=== PATIENT | female | born 1980 | race Caucasian/White ===

== ENCOUNTER 2023-02-09 19:18 | Emergency (ER) | payer SELFPAY ==
[2023-02-09 19:25] VITALS: BP 150/90; PULSE 100; RESP 24; TEMP 36.8; O2SAT 98; BMI 41.1
--- NOTE | 2023-02-09 19:38 | US_ITS ---
[address] [address] Patient Name: BATSHEVA TAPIA MRN: [id number] date: 1980 Sex: F Assigned Patient Location: ER Current Patient Location: ER Accession/Order Number: [id number] Exam Date: 02/09/2023 19:45 Report Date: 02/09/2023 20:43 At the request of: DONELL WILSON Procedure: US right upper quadrant EXAM: US right upper quadrant HISTORY: Right upper quadrant pain TECHNIQUE: Ultrasound of the right upper quadrant abdomen. COMPARISON: None. FINDINGS: Liver: Simple appearing cyst is noted. Enlarged measuring 19.1 centimeters with heterogeneous echotexture. Main portal vein is patent. No intrahepatic biliary ductal dilatation. Gallbladder: No cholelithiasis, pericholecystic fluid or gallbladder wall thickening. Common bile duct: Normal in diameter, measuring 0.4cm. Right kidney: Normal in size and echogenicity measuring 11 cm. No hydronephrosis or renal calculus. Miscellaneous:Diffuse abdominal pain during the study US/US right upper quadrant IMPRESSION: No convincing evidence of acute cholecystitis. Diffuse abdominal pain was noted during the study. Hepatomegaly with heterogeneous echotexture of the liver. Electronically authenticated by: ANITHA BRASHER Date: 02/09/2023 20:43
--- NOTE | 2023-02-09 19:40 | ED_ITS ---
HPI - Abdominal Pain General Chief Complaint: Abdominal Pain Stated Complaint: PAIN ON LEFT SIDE UPPER ABDOMAN Time Seen by Provider: 02/09/23 19:25 Source: patient Mode of arrival: walk-in Limitations: no limitations History of Present Illness HPI narrative: patient is a 42-year-old female who presents to the emergency department for the evaluation of right upper quadrant pain that began today. She states pain is worse with eating. She has had similar pain in the past but today seems more severe. She has had no fevers, chills, vomiting. She has had no urinary symptoms. She has had a previous hysterectomy and appendectomy. She last ate at 2:30 PM when she had a pad [place] noodle bowl. Related Data Previous Rx's Medication Instructions Recorded hyoscyamine sulfate 0.125 mg 0.125 mg PO Q6H PRN abdominal pain 02/09/23 tablet (Levsin) #12 tabs ketorolac 10 mg tablet 10 mg PO TID PRN pain #10 tabs 02/09/23 ondansetron 4 mg disintegrating 4 mg PO Q6H PRN nausea and 02/09/23 tablet vomiting #12 tabs oxycodone-acetaminophen 5 mg-325 1 tab PO Q6H PRN pain #15 tabs 02/09/23 mg tablet (Percocet) Allergies Allergy/AdvReac Type Severity Reaction Status Date / Time acetaminophen [From Vicodin] Allergy Intermediate Verified 02/09/23 19:29 hydrocodone [From Vicodin] Allergy Intermediate Verified 02/09/23 19:29 Review of Systems ROS Constitutional Denies: fever or chills Ears, nose, mouth, and throat Denies: neck pain Respiratory Denies: shortness of breath Gastrointestinal Reports: abdominal pain; Denies: nausea or vomiting Genitourinary Denies: painful urination Musculoskeletal Denies: back pain Integumentary/Breast Denies: rash Endocrine Denies: excessive urination Hematologic/Lymphatic Denies: easy bruising Exam Narrative Exam Narrative: Gen.: Awake, alert, in no distress Head: Normocephalic, atraumatic ENT: Moist mucous membranes Respiratory: No respiratory distress, lungs clear bilaterally Cardio: Regular rate and rhythm Gastrointestinal: Abdomen is soft, significant tenderness in the right upper quadrant with guarding, no rebound. No lower abdominal tenderness Extremities: Moves extremities equally Psych: Normal mood and affect Neuro: No focal neuro deficit Skin: Warm, dry, intact Constitutional Vital Signs, click to edit/add: Last Vital Signs Temp 98.2 F 02/09/23 19:25 Pulse 100 H 02/09/23 19:25 Resp 24 02/09/23 19:25 BP 150/90 H 02/09/23 19:25 Pulse Ox 98 02/09/23 19:25 O2 Del Method Room Air 02/09/23 19:25 Course Vital Signs Vital signs: Vital Signs Temperature 98.2 F 02/09/23 19:25 Pulse Rate 100 H 02/09/23 19:25 Respiratory Rate 24 02/09/23 19:25 Blood Pressure 150/90 H 02/09/23 19:25 Pulse Oximetry 98 02/09/23 19:25 Oxygen Delivery Method Room Air 02/09/23 19:25 Temperature 98.2 F 02/09/23 19:25 Pulse Rate 100 H 02/09/23 19:25 Respiratory Rate 24 02/09/23 19:25 Blood Pressure 150/90 H 02/09/23 19:25 Pulse Oximetry 98 02/09/23 19:25 Oxygen Delivery Method Room Air 02/09/23 19:25 MDM - Abdominal Pain MDM Narrative Medical decision making narrative: IV was established, patient requested not to take narcotic pain medication she would like to drive herself home with her work cart if she is able to be discharged. She was given IV Toradol, Levsin, Pepcid, Zofran with some improvement of symptoms. Her lab studies are unremarkable and LFTs, bilirubin and lipase are also normal. Ultrasound of the right upper quadrant shows no evidence of acute cholecystitis or gallstones. Due to the patient's level of pain on arrival, she was sent for CT to rule out any other intra-abdominal pathology. 2155: CT shows no evidence of acute process. I had lengthy discussion with the patient and her significant other at bedside. I believe the patient's symptoms represent biliary colic/biliary dyskinesia. She will require more testing with her PCP/general surgery service. She was provided multiple phone numbers for tertiary care facility general surgery services as well as local general surgeons that she can follow up with for possible HIDA scan and further testing. She is in agreement with treatment plan. She is discharged home with prescriptions for pain medication, Bentyl, Zofran, Toradol. Return to the emergency department if symptoms change or worsen. Her pain is improved at discharge. Medical Records Attestation: I reviewed the patient's medical records. Lab Data Attestation: I reviewed the patient's lab results. Labs: Lab Results 02/09/23 02/09/23 Range/Units 19:33 20:55 WBC 9.4 (4.0-11.0) 10^3/uL RBC 4.19 L (4.20-5.40) 10^6/uL Hgb 12.4 (12.0-16.0) g/dL Hct 36.4 (36.0-48.0) % MCV 86.9 (81.0-99.0) fL MCH 29.6 (26.7-34.0) pg MCHC 34.1 (29.9-35.2) g/dL RDW 12.8 (11.0-15.0) % Plt Count 303 (150-450) 10^3/uL MPV 10.5 (9.5-13.5) fL Neut % (Auto) 63.4 (43.0-75.0) % Lymph % (Auto) 27.1 (20.5-60.0) % [place] % (Auto) 7.4 (1.7-12.0) % Eos % (Auto) 1.3 (0.9-7.0) % Baso % (Auto) 0.4 (0.2-2.0) % Neut # (Auto) 6.0 (1.4-6.5) 10^3/uL Lymph # (Auto) 2.5 (1.2-3.8) 10^3/uL [place] # (Auto) 0.7 (0.3-0.8) 10^3/uL Eos # (Auto) 0.1 (0.0-0.7) 10^3/uL Baso # (Auto) 0.0 (0.0-0.1) 10^3/uL Abs Immat Gran (auto) 0.04 H (0.00-0.03) 10^3/uL Imm/Tot Granulo (auto) 0.4 (0.0-0.5) % Sodium 136 (136-145) mmol/L Potassium 3.5 (3.5-5.1) mmol/L Chloride 103 (98-107) mmol/L Carbon Dioxide 23.9 (21.0-32.0) mmol/L Anion Gap 12.6 BUN 15.0 (7.0-18.0) mg/dL Creatinine 0.92 (0.55-1.02) mg/dL Est GFR ( Amer) >60 (>=60) Est GFR (Non-Af Amer) >60 (>=60) BUN/Creatinine Ratio 16.3 Glucose 116 H (74-106) mg/dL Lactate 0.8 (0.4-2.0) mmol/L Calcium 8.3 L (8.5-10.1) mg/dL Total Bilirubin 0.3 (0.2-1.0) mg/dL AST <5 L (15-37) U/L ALT 15 (14-59) U/L Alkaline Phosphatase 66 (46-116) U/L Total Protein 7.7 (6.4-8.2) g/dL Albumin 3.7 (3.4-5.0) g/dL Globulin 4.0 g/dL Albumin/Globulin Ratio 0.9 Lipase 64.0 L (73.0-393.0) U/L Urine Color Yellow (YELLOW) Urine Clarity Clear (CLEAR) Urine pH 5.5 (5.0-9.0) Ur Specific [place] >=1.030 A (1.005-1.025) Urine Protein Negative (NEG/TRACE) mg/dL Urine Glucose (UA) Negative (NEGATIVE) mg/dL Urine Ketones Negative (NEGATIVE) mg/dL Urine Occult Blood Trace-i (NEGATIVE) Urine Nitrite Negative (NEGATIVE) Urine Bilirubin Negative (NEGATIVE) Urine Urobilinogen 0.2 (0.2-1.0) EU/dL Ur Leukocyte Esterase Negative (NEGATIVE) Urine RBC 2-5 A (0-2) #/HPF Urine WBC None seen (NONE SEEN) #/HPF Ur Squamous Epith Cells Few A (NONE/RARE) #/LPF Urine Crystals None seen (None Seen) #/HPF Urine Bacteria None seen (NONE SEEN) #/HPF Urine Casts None seen (NONE SEEN) #/LPF Urine Mucus Trace A (NONE SEEN) Ur Culture Indicated? No Imaging Data US - abdomen: Attestation: I have reviewed the pertinent imaging results. Radiologist's impression: Procedure: US right upper quadrant EXAM: US right upper quadrant HISTORY: Right upper quadrant pain TECHNIQUE: Ultrasound of the right upper quadrant abdomen. COMPARISON: None. FINDINGS: Liver: Simple appearing cyst is noted. Enlarged measuring 19.1 centimeters with heterogeneous echotexture. Main portal vein is patent. No intrahepatic biliary ductal dilatation. Gallbladder: No cholelithiasis, pericholecystic fluid or gallbladder wall thickening. Common bile duct: Normal in diameter, measuring 0.4cm. Right kidney: Normal in size and echogenicity measuring 11 cm. No hydronephrosis or renal calculus. Miscellaneous:Diffuse abdominal pain during the study IMPRESSION: No convincing evidence of acute cholecystitis. Diffuse abdominal pain was noted during the study. Hepatomegaly with heterogeneous echotexture of the liver. Electronically authenticated by: ANITHA BRASHER Date: 02/09/2023 20:43 CT scan - abdomen: Attestation: I have reviewed the pertinent imaging results. Radiologist's impression: Procedure: CT abdomen pelvis w con EXAM: CT abdomen pelvis w con REASON FOR EXAM: Female, 42 years, Abdominal pain. TECHNIQUE: Computed tomography of the abdomen and pelvis is performed in the axial projection from the lung bases to the pubic symphysis. Sagittal and coronal reconstructed images are performed. Dose reduction techniques were achieved by using automated exposure control and/or adjustment of mA and/or KVP according to patient size and/or use of iterative reconstruction technique. A total of 100 mL Omnipaque 300 IV contrast was given. Study was performed without oral contrast. COMPARISON: Right upper quadrant ultrasound, same date FINDINGS: Lung bases: The lung bases are clear. There is no pleural effusion. The visualized portions of the heart are unremarkable. Liver: There is a 1.8 cm cyst in the left lobe of the liver. A tiny cyst is noted near the refugio hepatis. Gallbladder: The gallbladder is contracted. Spleen: The spleen is normal. Pancreas: The pancreas is normal. Adrenal glands: The adrenal glands are normal bilaterally. Right kidney: The kidney is normal in size. There is no renal calculus or hydronephrosis. Left kidney: The kidney is normal in size. There is no renal calculus or hydronephrosis. Stomach: The stomach is normal. Small bowel: There is no small bowel obstruction. Pierced be some stasis of small bowel contents in the low pelvis. Large bowel: The colon is normal. There is a moderate amount of stool seen throughout the colon. Appendix: The appendix is not visualized. No right lower quadrant inflammatory changes are seen to suggest acute appendicitis. Aorta: There are mild atherosclerotic calcifications of the abdominal aorta. IVC: The IVC is normal. Retroperitoneum: Normal retroperitoneum. Bladder: The bladder is empty at the time of scanning. Pelvic organs: The uterus is absent, consistent with hysterectomy. Abdominal wall: There is a small fat-containing umbilical hernia. There are postoperative changes in the right inguinal region. Osseous structures: Normal bony structures. IMPRESSION: No bowel obstruction or acute renal pathology. The appendix is not visualized. No right lower quadrant inflammatory changes are seen. There is a moderate amount of stool throughout the colon. Additional findings, as described above. Electronically authenticated by: BROOKE MOYA Date: 02/09/2023 21:52 Discharge Plan Discharge Chief Complaint: Abdominal Pain Clinical Impression: Abdominal pain, Biliary colic Patient Disposition: Home, Self-Care Time of Disposition Decision: 22:09 Condition: Good Prescriptions / Home Meds: New ketorolac 10 mg tablet 10 mg PO TID PRN (Reason: pain) Qty: 10 0RF oxycodone-acetaminophen [Percocet] 5-325 mg tablet 1 tab PO Q6H PRN (Reason: pain) Qty: 15 0RF Rx Instructions: DX: R10.9 hyoscyamine sulfate [Levsin] 0.125 mg tablet 0.125 mg PO Q6H PRN (Reason: abdominal pain) Qty: 12 0RF ondansetron 4 mg tablet,disintegrating 4 mg PO Q6H PRN (Reason: nausea and vomiting) Qty: 12 0RF Instructions: Biliary Colic (ED), HIDA Scan (DC), Acute Abdominal Pain (ED) Additional Instructions: [facility] general surgery (tel:[phone]), [facility] general surgery ([phone]), Dr. Alexandre ([phone]) or Dr. Chand ([phone]) Stand Alone Forms: Portal Instructions Referrals: Physician,Non-Staff, MD [Primary Care Provider] - 1 week Discharge Date/Time: 02/09/23 22:43
[2023-02-09 19:48] LABS: Basophils Percent Auto 0.4 % (0.2-2.0); Eosinophils Absolute Auto 0.1 10^3/uL (0.0-0.7); Eosinophils Percent Auto 1.3 % (0.9-7.0); Hematocrit 36.4 % (36.0-48.0); Hemoglobin 12.4 g/dL (12.0-16.0); Immature Granulocytes Abs Auto 0.04 10^3/uL (0.00-0.03); Immature Granulocytes Pct Auto 0.4 % (0.0-0.5); Lymphocytes Absolute Auto 2.5 10^3/uL (1.2-3.8); Lymphocytes Percent Auto 27.1 % (20.5-60.0); Mean Corpuscular HGB Conc 34.1 g/dL (29.9-35.2); Mean Corpuscular Hemoglobin 29.6 pg (26.7-34.0); Mean Corpuscular Volume 86.9 fL (81.0-99.0); Mean Platelet Volume 10.5 fL (9.5-13.5); Monocytes Absolute Auto 0.7 10^3/uL (0.3-0.8); Monocytes Percent Auto 7.4 % (1.7-12.0); Neutrophils Percent Auto 63.4 % (43.0-75.0); Platelet Count 303 10^3/uL (150-450); Red Blood Count 4.19 10^6/uL (4.20-5.40); Red Cell Distribution Width 12.8 % (11.0-15.0); White Blood Count 9.4 10^3/uL (4.0-11.0)
[2023-02-09] MEDS: KETOROLAC TROMETHAMINE 30 MG/ML VIAL IVP (19:52)
[2023-02-09] MEDS: 0.9 % SODIUM CHLORIDE 1,000 ML 999 ML IV (19:53)
[2023-02-09] MEDS: HYOSCYAMINE SULFATE 0.125 MG TAB.SUBL SL (19:53)
[2023-02-09] MEDS: ONDANSETRON PF 4 MG/2 ML VIAL IV (19:53)
[2023-02-09] MEDS: FAMOTIDINE/PF 20 MG/2 ML VIAL IV (19:53)
[2023-02-09 20:12] LABS: Alanine Aminotransferase 15 U/L (14-59); Albumin Globulin Ratio 0.9; Albumin Level 3.7 g/dL (3.4-5.0); Alkaline Phosphatase 66 U/L (46-116); Anion Gap 12.6; Aspartate Amino Transferase <5 U/L (15-37); BUN Creatinine Ratio 16.3; Bilirubin Total 0.3 mg/dL (0.2-1.0); Calcium 8.3 mg/dL (8.5-10.1); Carbon Dioxide 23.9 mmol/L (21.0-32.0); Chloride 103 mmol/L (98-107); Estimated GFR (African America >60 (>=60); Estimated GFR (Non-African Ame >60 (>=60); Glucose 116 mg/dL (74-106); Potassium 3.5 mmol/L (3.5-5.1); Sodium 136 mmol/L (136-145); Total Protein 7.7 g/dL (6.4-8.2)
[2023-02-09 20:19] LABS: Lactate/Lactic Acid 0.8 mmol/L (0.4-2.0)
--- NOTE | 2023-02-09 20:46 | CT_ITS ---
[address] [address] Patient Name: BATSHEVA TAPIA MRN: [id number] date: 1980 Sex: F Assigned Patient Location: ER Current Patient Location: ER Accession/Order Number: [id number] Exam Date: 02/09/2023 20:50 Report Date: 02/09/2023 21:52 At the request of: DONELL WILSON Procedure: CT abdomen pelvis w con EXAM: CT abdomen pelvis w con REASON FOR EXAM: Female, 42 years, Abdominal pain. TECHNIQUE: Computed tomography of the abdomen and pelvis is performed in the axial projection from the lung bases to the pubic symphysis. Sagittal and coronal reconstructed images are performed. Dose reduction techniques were achieved by using automated exposure control and/or adjustment of mA and/or KVP according to patient size and/or use of iterative reconstruction technique. A total of 100 mL Omnipaque 300 IV contrast was given. Study was performed without oral contrast. COMPARISON: Right upper quadrant ultrasound, same date FINDINGS: Lung bases: The lung bases are clear. There is no pleural effusion. The visualized portions of the heart are unremarkable. Liver: There is a 1.8 cm cyst in the left lobe of the liver. A tiny cyst is noted near the refugio hepatis. Gallbladder: The gallbladder is contracted. Spleen: The spleen is normal. Pancreas: The pancreas is normal. Adrenal glands: The adrenal glands are normal bilaterally. Right kidney: The kidney is normal in size. There is no renal calculus or hydronephrosis. Left kidney: The kidney is normal in size. There is no renal calculus or hydronephrosis. Stomach: The stomach is normal. Small bowel: There is no small bowel obstruction. Pierced be some stasis of small bowel contents in the low pelvis. Large bowel: The colon is normal. There is a moderate amount of stool seen throughout the colon. Appendix: The appendix is not visualized. No right lower quadrant inflammatory changes are seen to suggest acute appendicitis. Aorta: There are mild atherosclerotic calcifications of the abdominal aorta. IVC: The IVC is normal. Retroperitoneum: Normal retroperitoneum. Bladder: The bladder is empty at the time of scanning. Pelvic organs: The uterus is absent, consistent with hysterectomy. Abdominal wall: There is a small fat-containing umbilical hernia. There are postoperative changes in the right inguinal region. Osseous structures: Normal bony structures. CT/CT abdomen pelvis w con IMPRESSION: No bowel obstruction or acute renal pathology. The appendix is not visualized. No right lower quadrant inflammatory changes are seen. There is a moderate amount of stool throughout the colon. Additional findings, as described above. Electronically authenticated by: BROOKE MOYA Date: 02/09/2023 21:52
[2023-02-09 21:05] LABS: Bilirubin Urine NEGATIVE (NEGATIVE); Blood Urine TRACE-I (NEGATIVE); Clarity Urine CLEAR (CLEAR); Color Urine YELLOW (YELLOW); Glucose Urine UA NEGATIVE (NEGATIVE); Ketones Urine NEGATIVE (NEGATIVE); Leukocyte Esterase Urine NEGATIVE (NEGATIVE); Nitrite Urine NEGATIVE (NEGATIVE); Protein Urine NEGATIVE (NEG/TRACE); Specific Gravity Urine >=1.030 (1.005-1.025); Urobilinogen Urine 0.2 EU/dL (0.2-1.0); pH Urine 5.5 (5.0-9.0)
[2023-02-09 21:06] LABS: Urine Microscopic Indicated YES
[2023-02-09 21:11] LABS: Bacteria Urine NONE SEEN #/HPF (NONE SEEN); Crystals Seen? None Seen #/HPF (None Seen); Mucus Urine TRACE (NONE SEEN); Squamous Epithelial Cell Urine FEW #/LPF (NONE/RARE); WBC Urine NONE SEEN #/HPF (NONE SEEN)
[2023-02-09 21:12] LABS: Cast Seen? NONE SEEN #/LPF (NONE SEEN); Urine Culture Indicated NO
[2023-02-09] MEDS: ONDANSETRON 4 MG RAPDIS TABLET SL (22:38)
[2023-02-09] MEDS: DICYCLOMINE HCL 10 MG CAPSULE 20 MG PO (22:38)
== END 2023-02-09 22:43 | disposition home or self-care (01) ==
PROVIDERS: Physician Assistant; Emergency Provider Emergency Medicine
DX: K80.50 Calculus of bile duct without cholangitis or cholecystitis without obstruction (principal); R10.9 Unspecified abdominal pain; Z90.710 Acquired absence of both cervix and uterus; Z90.49 Acquired absence of other specified parts of digestive tract
CPT/HCPCS: 36415; 74177; 76705; 80053; 81001; 81003; 83605; 83690; 85025; 96374; 96375; 99285; Q9967

== ENCOUNTER 2023-02-16 08:03 | Outpatient (OUT) | payer SELFPAY ==
--- NOTE | 2023-02-16 08:17 | ECG_ITS ---
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
== END 2023-02-16 08:04 | disposition home or self-care (01) ==
LOC: PST 08:03
PROVIDERS: Visit Provider Surgery
DX: Z01.810 Encounter for preprocedural cardiovascular examination (principal); K80.50 Calculus of bile duct without cholangitis or cholecystitis without obstruction; K82.8 Other specified diseases of gallbladder
CPT/HCPCS: 93005

== ENCOUNTER 2023-02-18 07:36 | Day surgery (SDC) | payer SELFPAY ==
[2023-02-16 08:55] VITALS: BP 127/78; PULSE 82; RESP 20; TEMP 36.6; O2SAT 97; BMI 41.1
[2023-02-18] VITALS (22 sets, daily range): BP systolic 99–144; BP diastolic 48–86; PULSE 58–81; RESP 4–24; TEMP 36.2–36.6; O2SAT 90–100; BMI 40.8
[2023-02-18] MEDS: LACTATED RINGER'S SOLUTION 1,000 ML 50 ML IV (08:10)
[2023-02-18] MEDS: INDOCYANINE GREEN 25 MG VIAL INJ (08:17)
[2023-02-18] MEDS: CEFAZOLIN SODIUM/DEXTROSE,ISO 2 GM/50 ML PIGGYBACK IV (08:20)
[2023-02-18] MEDS: BUPIVACAINE HCL 0.5% PF 50 MG/10 ML VIAL 20 ML INJ (08:51)
[2023-02-18] MEDS: LACTATED RINGER'S SOLUTION 1,000 ML 1000 ML IV (09:22)
--- NOTE | 2023-02-18 09:53 | P.GSPRC_ITS ---
Date of procedure: 02/18/23 Indications for Procedure: This patient is a 42-year-old female who was recently seen for episodes of right upper quadrant pain. Gallbladder ultrasound revealed a contracted gallbladder as well as CT scan and patient's symptoms clinically consistent with biliary dyskinesia. Robotic cholecystectomy was recommended. The risks benefits options and potential complications of the procedure were discussed in detail with the patient and they agreed to proceed and consent was signed. Pre-op diagnosis: biliary colic, biliary dyskinesia Post-op diagnosis: same as pre-op Procedure: robotic cholecystectomy with ICG cholangiogram [facility] Surgeon: Corky Chand Procedure Summary: The patient was brought to the operating room placed in the supine position. Gen. anesthesia was induced and the patient was intubated. The abdomen was prepped and draped in usual sterile fashion. She had been given preoperative IV antibiotics and was also given preoperative ICG. A site in the left upper quadrant was infiltrated with half percent Marcaine with epinephrine. A small incision was made. A 12 mm port was placed through this incision and advanced into the peritoneal cavity under laparoscopic guidance. The abdomen was then insufflated to 15 mmHg of carbon dioxide. The camera was reintroduced and safe port site entry was confirmed. Three 8 mm robotic ports were then placed, one at the umbilicus and two in the right lateral abdomen following local anesthesia under direct visualization. The camera was removed and an additional 8 mm port was placed through the 12 mm port. the patient was then placed in reverse Trendelenburg position and banked to the left. At this time the da Alex XI was brought to the field and camera was introduced and all ports direct and instruments introduced in standard fashion.at this time I left the operating table and attended the surgeon consult. The fundus of the gallbladder is grasped and retracted cephalad. The region of Montiel's pouch was grasped and retracted laterally. Dissection was not carried out in the region of the triangle of Calot. The cystic duct was readily identified. This was confirmed with a software firmware engineer. This was then divided between clips. Posterior to this the cystic artery was identified. This was divided after clip placement. The gallbladder was then taken off the liver using electrocautery. Excellent hemostasis and secured clip placement was noted. The gallbladder was then placed in a retrieval bag. This was brought out through the 12 mm port site intact. Instruments, camera and ports were subsequently removed and the abdomen was desufflated. Skin incisions were closed with subcuticular sutures of 4-0 Vicryl. Sterile dressings were applied. The patient tolerated the procedure well and was transferred to the recovery area in stable condition. Estimated blood loss (mL): 2 Specimens: gallbladder Complications: No
[2023-02-18] MEDS: ONDANSETRON PF 4 MG/2 ML VIAL IV (10:22)
--- NOTE | 2023-02-18 10:24 | PC.NURSE ---
Patient denies pain but is uncomfortable in the bed she is in. Complaining of nausea.
--- NOTE | 2023-02-18 10:26 | PC.NURSE ---
Patient is nauseated administered zofran at this time.
--- NOTE | 2023-02-18 10:33 | PC.NURSE ---
Patient given soda to help with burping. Burping helped with discomfort. Denies any pain.
--- NOTE | 2023-02-18 10:42 | PC.NURSE ---
Patient states she has discomfort like she knows something was done not really pain. Patients words.
== END 2023-02-18 11:40 | disposition home or self-care (01) ==
PROVIDERS: Visit Provider Surgery
PROC: (CPT 47563; principal; 2023-02-18 08:30)
DX: K81.1 Chronic cholecystitis (principal); Z79.899 Other long term (current) drug therapy; M79.7 Fibromyalgia; Z90.710 Acquired absence of both cervix and uterus; F17.210 Nicotine dependence, cigarettes, uncomplicated; K82.8 Other specified diseases of gallbladder
CPT/HCPCS: 47563; 88304; J2704